=== PATIENT | male | born 1945 | race Caucasian/White ===

== ENCOUNTER → 2017-07-22 | Day surgery (SDC) | payer OTHER ==
[~2017-07-22] MED LIST: D5 LR 1000 ML 1,000 ML IV ONE; DIPRIVAN VIAL 10 ML ONE; DIPRIVAN VIAL 20 ML ONE
[2017-07-22 14:29] VITALS: BP 116/72
== END ==
LOC: SURG1 12:00
PROVIDERS: ATTEND Internal Medicine Gastroenterology
PROC: 0DJ08ZZ Inspection of Upper Intestinal Tract, Via Natural or Artificial Opening Endoscopic (ICD-10-PCS; principal; 2017-07-22 21:15)
PROC: 0DB38ZX Excision of Lower Esophagus, Via Natural or Artificial Opening Endoscopic, Diagnostic (ICD-10-PCS; principal; 2017-07-22 21:15)
PROC: 0DB68ZX Excision of Stomach, Via Natural or Artificial Opening Endoscopic, Diagnostic (ICD-10-PCS; principal; 2017-07-22 21:15)
DX: R49.0 Dysphonia (principal); R10.13 Epigastric pain; Z85.820 Personal history of malignant melanoma of skin; R93.3 Abnormal findings on diagnostic imaging of other parts of digestive tract; K20.8 Other esophagitis; K44.9 Diaphragmatic hernia without obstruction or gangrene; K29.60 Other gastritis without bleeding; K31.89 Other diseases of stomach and duodenum
CPT/HCPCS: 99100; J3490; J7120

== ENCOUNTER 2017-09-02 07:07 | Day surgery (SDC) | payer OTHER ==
[2017-09-02] MEDS ORDERED: D5 LR 1000 ML 1,000 ML IV ONE (07:14)
[2017-09-02] MEDS ORDERED: XYLOCAINE 2 % (PLAIN) ONE (08:43)
[2017-09-02] MEDS ORDERED: DIPRIVAN VIAL 20 ML ONE (08:43)
[2017-09-02 09:16] VITALS: BP 112/87
== END 2017-09-02 09:15 | disposition home or self-care (01) ==
LOC: SURG1 07:07
PROVIDERS: ATTEND Internal Medicine Gastroenterology
PROC: 0DJD8ZZ Inspection of Lower Intestinal Tract, Via Natural or Artificial Opening Endoscopic (ICD-10-PCS; principal; 2017-09-02 08:00)
DX: Z12.11 Encounter for screening for malignant neoplasm of colon (principal); K64.0 First degree hemorrhoids; Z85.820 Personal history of malignant melanoma of skin
CPT/HCPCS: 99100; A4217; J2001; J3490; J7120